=== PATIENT | female | born 2000 | race Asian ===

== ENCOUNTER 2023-07-01 05:35 | Day surgery (SDC) | payer BC ==
[2023-06-30 13:55] LABS: BASOPHILS % (AUTO) 0.4 % (0-1); EOSINOPHILS # (AUTO) 0.4 X10'3 (0-0.9); EOSINOPHILS % (AUTO) 4.2 % (0-6); LYMPHOCYTES # (AUTO) 2.8 X10'3 (1.1-4.8); LYMPHOCYTES % (AUTO) 30.3 % (21-51); MEAN CORPUSCULAR HEMOGLOBIN 30.2 PG (27.0-31.0); MEAN CORPUSCULAR HGB CONC 33.7 g/dL (33.0-36.5); MEAN CORPUSCULAR VOLUME 89.8 FL (78-98); MEAN PLATELET VOLUME 7.6 FL (7.4-10.4); MONOCYTES # (AUTO) 0.5 X10'3 (0-0.9); MONOCYTES % (AUTO) 5.4 % (2-12); NEUTROPHILS # (AUTO) 5.4 X10'3 (1.8-7.7); NEUTROPHILS % (AUTO) 59.7 % (42-75); PRE OP HEMATOCRIT 40.2 % (35.0-45.0); PRE OP HEMOGLOBIN 13.6 g/dL (12.0-16.0); PRE OP PLATELET COUNT 296 X10'3 (140-440); PRE OP WHITE BLOOD COUNT 9.1 10'3 (4.8-10.8); RED BLOOD COUNT 4.48 X10'6 (4.20-5.60); RED CELL DISTRIBUTION WIDTH 12.8 % (11.5-14.5)
[2023-06-30 13:58] LABS: URINE HCG NEGATIVE (NEG)
[2023-06-30 14:03] LABS: ALBUMIN 4.4 G/DL (3.4-5.0); ALBUMIN/GLOBULIN RATIO 1.1 (1.1-1.5); ALKALINE PHOSPHATASE 57 IU/L (46-116); BLOOD UREA NITROGEN 9 MG/DL (7-18); BUN/CREATININE RATIO 14.1 (10.0-20.0); CALCIUM 9.5 MG/DL (8.5-10.1); CHLORIDE 102 MMOL/L (99-107); CREATININE 0.64 MG/DL (0.40-0.90); PRE OP ALT 13 U/L (30-65); PRE OP ANION GAP 9 (8-16); PRE OP AST 17 U/L (10-37); PRE OP BILIRUB, TOTAL 0.4 MG/DL (0.0-1.0); PRE OP GLUCOSE 109 MG/DL (70-104); PRE OP POTASSIUM 3.4 MMOL/L (3.4-5.1); PRE OP SODIUM 138 MMOL/L (135-145); TOTAL CARBON DIOXIDE 26.9 MMOL/L (24-32); TOTAL PROTEIN 8.5 G/DL (6.4-8.2); eGFR > 90 ML/MIN
[2023-07-01] VITALS (26 sets, daily range): BP systolic 94–111; BP diastolic 47–70; PULSE 53–92; RESP 13–22; TEMP 98.3; O2SAT 98–100
[~2023-07-01] VITALS: Ht 160 cm; Wt 57.6 kg
[~2023-07-01 05:35] MED LIST: ASCO-157 PO; FERR-29 PO; FEXO-236 PO; MULT-1085 PO; ceFOXitin 2GM-NS 100mL ADDvant 100 ML IV ONE; famotidine 20mg tablet PO ONE; ringers solution, lacted 1,000 ML IV SCH
[2023-07-01] MEDS ORDERED: BUPIVAcaine HCl 0.25%/EPInephrine 1:200,000 inj. 10 ML VIAL ONE (07:03)
[2023-07-01] MEDS ORDERED: fentaNYL/PF 50MCG/1 ML 2ML syringe ONE (07:28)
[2023-07-01] MEDS ORDERED: rocuronium 10mg/ml inj IV ONE (07:28)
[2023-07-01] MEDS ORDERED: propofol inj 20 ML IV ONE (07:28)
[2023-07-01] MEDS ORDERED: midazolam 1 mg/ML 2ml injection ONE (07:28)
[2023-07-01] MEDS ORDERED: ondansetron/PF 4mg/2ml inj IV PRN (07:40)
[2023-07-01] MEDS ORDERED: morphine 4 MG/ML inj SYRINge IV PRN (07:40)
[2023-07-01] MEDS ORDERED: morphine 2 MG/ML inj. syringe IV PRN (07:40)
[2023-07-01] MEDS ORDERED: meperidine/PF 25mg/ml syringe IV PRN ×3 (07:40)
[2023-07-01] MEDS ORDERED: ringers solution, lacted 1,000 ML IV SCH (07:40)
[2023-07-01] MEDS ORDERED: sevoflurane 250ml liquid IH ONE (07:49)
[2023-07-01] MEDS ORDERED: BUPIVAcaine 0.25% w/Epi /PF 30ml vial IJ ONE ×2 (08:13→08:37)
[2023-07-01] MEDS ORDERED: ondansetron/PF 4mg/2ml inj ONE (08:35)
[2023-07-01] MEDS ORDERED: dexamethasone sod phosphate 4mg/ml inj. ONE (08:35)
[2023-07-01] MEDS ORDERED: acetaminophen 1,000mg/100ml IV 100 ML IV ONE (08:36)
[2023-07-01] MEDS ORDERED: sugammadex 200mg/2ml injection IV ONE (08:41)
--- NOTE | 2023-07-01 08:54 | NUR ---
Received from OR via [facility], accompanied by Anesthesiologist DR VELASQUEZ and report given by Anesthesiologist AND FOURDRINIER OPERATOR. PT DROWSY, DENIES PAIN, ABDOMEN W/3 LAP SITES W/DERMABOND CDI, BONNY PAD IN PLACE CDI. Addendum: 07/01/23 at 0924 by Migdalia Jo RN Amended: Links added.
[2023-07-01] MEDS ORDERED: ketorolac trometh. 30mg/ml inj. IV ONE (10:30)
[2023-07-01] MEDS: proCHLORperazine 10 MG/2 ml inj IV PRN ×2 (11:10→11:31)
--- NOTE | 2023-07-01 13:14 | NUR ---
NAUSEA SUBSIDED, PT UP AND ABLE TO AMBULATE SAFELY TO BATHROOM FOR VOID. D/C INSTRUCTIONS GIVEN AND GONE OVER W/PT WHO VERBALIZED UNDERSTANDING. PT D/CD TO HOME VIA W/C TO PRIVATE VEHICLE W/O INCIDENT. Addendum: 07/01/23 at 1331 by Migdalia Jo RN Amended: Links added.
== END 2023-07-01 13:14 | disposition home or self-care (01) ==
LOC: OR 05:35
PROVIDERS: ATTEND Specialist
DX: N80.102 Endometriosis of left ovary, unspecified depth (principal)
CPT/HCPCS: 36415; 58662; 80053; 81025; 85025; J0131; J0694; J0780; J1100; J1885; J2250; J2405; J2704; J3010; J3490; J7120; S0020; Z7506; Z7508; Z7512; A4618; A7000